=== PATIENT | female | born 1965 | race Hispanic/Latino ===

== ENCOUNTER 2018-08-11 08:46 | Day surgery (SDC) | payer OTHER ==
[2018-08-11 08:51] VITALS: BMI 28.7
[2018-08-11] MEDS ORDERED: Lidocaine 1% Inj (20ml) ONE (09:05)
[2018-08-11] MEDS ORDERED: Bupivacaine 0.5% Inj(30mL) ONE (09:06)
--- NOTE | 2018-08-11 09:21 | CP.PCM.PN ---
Subjective - Date & Time of Evaluation Date of Evaluation: 08/11/18 Time of Evaluation: 09:15 - Subjective Subjective: [facility] note for Dr. Eric, 52 yo female with pmhx of hypothyroidism seen and evaluated in [facility] for right flatfoot. Patient states she notices discomfort after walking for a long time. Patient states she has exhausted all conservative treatment including but not limited to orthotics, NSAIDS, change of shoe gear. Patient admits to being NPO. Patient denies any recent f/nv/sob. Objective - Vital Signs/Intake and Output Vital Signs (last 24 hours): Temp Pulse Resp BP Pulse Ox 98.2 F 82 20 147/85 97 08/11/18 09:13 08/11/18 09:13 08/11/18 09:13 08/11/18 09:13 08/11/18 09:13 - Constitutional Appears: Well, Non-toxic, No Acute Distress - Head Exam Head Exam: ATRAUMATIC - Extremities Exam Additional comments: Right lower extremity exam: vascular: dp/pt 2/4, CFT <3 secs x 5, TG warm to warm, no edema or erythema noted. neuro: protective sensation intact via ipswich 4/4 ortho: flattening of the foot noted upon weightbearing, 0/4 arch height, calcnaeal valgus noted derm: no open lesions, no hyperkeratotic lesions, no clinical signs of infection Assessment and Plan - Assessment and Plan (Free Text) Assessment: 52 yo female seen and evaluated in [facility] for right foot surgery Plan: Pt was seen and examined in [facility] Pt NPO status was confirmed All pre-op testing and clearance in chart Pt has exhausted all conservative treatment at this time and is opting for surgical intervention Pt was explained procedure and post-operative course All pt's questions were answered to satisfaction No guarantees were made Pt understands all risks, benefits and complications of procedure Pt will follow-up with within 1 week of surgery
[2018-08-11] MEDS ORDERED: Propofol 10 mg/ml Inj (20 ML) ONE (09:26)
[2018-08-11] MEDS ORDERED: Lidocaine 2% Jelly (5 ml) TOP ONE (09:27)
[2018-08-11] MEDS ORDERED: Midazolam 2 MG/2 ML VIAL ONE (09:27)
[2018-08-11] MEDS ORDERED: Lidocaine 1% 5ml Abboject ONE (09:27)
[2018-08-11] MEDS ORDERED: Lactated Ringer's 1,000 ML IV ONE (09:29)
--- NOTE | 2018-08-11 09:29 | CP.SDSHP ---
Same Day Surgery H & P - History Proposed Procedure: Right foot subtalar joint arthroeresis - Previous Medical/Surgical History Previous Surgical History: denies - Allergies Allergies: Allergies No Known Allergies Allergy (Verified 08/11/18 08:49) - Physical Exam Vital Signs: Vital Signs 08/11/18 09:13 Temperature 98.2 F Pulse Rate 82 Respiratory 20 Rate Blood Pressure 147/85 O2 Sat by Pulse 97 Oximetry Social History: Alcohol - {Optional Preform as Required} Ortho: Other (right flattening foot upon weight bearing) - Date & Time Date: 08/11/18 Time: 09:29 Short Stay Discharge - Short Stay Discharge Admitting Diagnosis/Reason for Visit: [facility] Disposition: HOME/ ROUTINE Additional Instructions (Diet, Activity): -Patient in good/stable condition for discharge home -Pt to resume medications per medical reconciliation -Resume regular diet -Please keep dressing clean, dry, & intact to surgical site -Use plastic bag over bandage for showering -Wear post op shoe at all times when ambulating -Call clinic if you see signs of infection (redness, swelling, malodor) -Please make an appointment to see Dr. Eric in office/clinic within 1 week for post-op check Progress Note/Discharge Note with Instructions: - Patient evaluated bedside in recovery s/p right foot surgery - After surgical procedure patient in NAD - (+) Void, (+) Appetite - Capillary refill time <3s and NVS intact. - Patient denies complaints at this time. - Post operative instructions and plan of care explained to patient at length. - Patient. acknowledges verbal understanding. - Patient stable for DC per podiatric surgery
[2018-08-11] MEDS ORDERED: Sodium Chloride 0.9% 1,000 ML IV SCH (09:30)
[2018-08-11] MEDS ORDERED: Lidocaine 1% Inj (20ml) IJ ONE (09:30)
[2018-08-11] MEDS ORDERED: Bupivacaine 0.5% Inj(30mL) IJ ONE (09:30)
[2018-08-11] MEDS ORDERED: ceFAZolin 1 GM in Sodium Chloride 0.9% 100 ML IVPB STA (09:30)
[2018-08-11] MEDS ORDERED: Dexamethasone 4 mg/1 ml ONE (09:59)
[2018-08-11] MEDS ORDERED: HYDROmorphone 0.5 mg/0.5 ml ISec IVP PRN (10:59)
[2018-08-11] MEDS ORDERED: Lactated Ringer's 1,000 ML IV SCH (11:00)
--- NOTE | 2018-08-11 11:00 | PCM.SURG1 ---
Surgeon's Initial Post Op Note - Surgeon's Notes Surgeon: NICK LlamasM Rugby Union Footballer: NICK JonesM PGY-3; NICK PendletonM PGY-2 Type of Anesthesia: General LMA, Local Anesthesia Administered By: Dr. Vannesa MD Pre-Operative Diagnosis: painful flatfoot deformity R foot Operative Findings: see operative report. Materials: Hyprocure arthroereisis stent implant (size 8), 4-0 nylon, 5 cc 1:1 mix 0.5 marcaine plain + 1% licoaine plain, 1/2 cc of dexamethasone phospate (2mg total) Post-Operative Diagnosis: same Operation Performed: implantation of arthroereisis stent implant subtalar joint R foot Specimen/Specimens Removed: none Estimated Blood Loss: EBL {In ML}: 1 Blood Products Given: N/A Drains Used: No Drains Post-Op Condition: Good Date of Surgery/Procedure: 08/11/18 Time of Surgery/Procedure: 10:00
[2018-08-11 12:23] VITALS: RESP 18
[2018-08-11 13:07] VITALS: BP 123/76; PULSE 78; TEMP 97.2; O2SAT 100
--- NOTE | 2018-08-11 19:20 | CARD ---
APPROVED REPORT Date of service: 08/11/2018 EKG Measurement Heart [id number] <Conclusion> Normal sinus rhythm Normal ECG
--- NOTE | 2018-08-14 19:43 | OP ---
PROCEDURE DATE: 08/11/2018 PREOPERATIVE DIAGNOSIS: Painful flatfoot deformity of the right foot. POSTOPERATIVE DIAGNOSIS: Painful flatfoot deformity of the right foot. PROCEDURE: Implantation of arthroereisis stent implant of subtalar joint right foot. SURGEON: Melecio Eric MD. PRINCIPAL PROCESS ENGINEER: Aby Walter DPM, Pranav Langston DPM. TYPE OF ANESTHESIA: General LMA with local. ANESTHESIA ADMINISTERED BY: Seb Granado MD. INDICATIONS: This is a 52-year-old female with the above mentioned diagnosis. The patient has exhausted all conservative treatment measures at this time and now requires surgical intervention. The patient signed the consent after careful explanation of all risks, benefits, complications, and alternatives for the surgical procedures. No guarantees were given nor implied. Ancef IV was given to the patient prior to the procedure, n.p.o. status was confirmed prior to taking the patient to the operating room. PREPARATION: The patient was brought to the operating room and placed on the operating table in a supine position. A well-padded pneumatic ankle tourniquet was placed to the patient's right ankle with plenty of Webril cast padding. Once IV sedation was achieved, the patient received a total of 5 mL of 1:1 mixture consisting of 0.5% Marcaine plain with 2% lidocaine plain and 0.5 mL of dexamethasone phosphate containing 2 mg per mL was introduced in a local block fashion to the patient's right foot. Once this was achieved, the right foot was then prepped and draped in the usual sterile manner. Esmarch was utilized to exsanguinate the patient's right foot. The pneumatic ankle tourniquet was then inflated to 250 mmHg and the procedure was begun. DESCRIPTION OF PROCEDURE: Implantation of arthroereisis stent implant of subtalar joint right foot. Our attention was now directed over the lateral aspect of the patient's right foot at the level of the sinus tarsi where a small stab incision was created. Prior to making this incision, a #18 gauge needle was utilized to make sure that the sinus tarsi trajectory was properly identified. The #18 gauge needle was now retracted from the sinus tarsi and care was taken to avoid all vital neurovascular structures in this area. All bleeders were cauterized as necessary. Next, a Cutler scissor was utilized in order to cut the interosseous ligaments within the sinus tarsi as a channel was created from dorsolateral to plantar medial in an approximately 45 degree fashion. Once the sinus tarsi was cleared of all soft tissue, the surgical site was flushed with copious amounts of sterile normal saline solution and a 2.0 K-wire was then passed across the sinus tarsi to allow for cannulated implantation of the implant. Next, the HyProCure implant trial sizers were then placed within the sinus tarsi in order to dilate the sinus tarsi to the correct implant size needed for the foot. An #8 implant was chosen. The sizer was removed and the implant was driven into and across the sinus tarsi using intraoperative fluoroscopy to check for placement which appeared to be seated well within the sinus tarsi. The K-wire was then removed. The surgical site was again flushed with copious amounts of sterile normal saline solution and the skin edges were re-approximated using 4-0 Nylon sutures. The surgical site was dressed with Xeroform, 4x4 gauze, Young and a Ian bandage. POSTOPERATIVE CONDITION: The patient tolerated the procedure and the anesthesia well with no apparent complications or complaints. The patient was escorted to the recovery room at this time. The patient will follow up with Dr. Eric in the office within one week. She will wear a CAM boot and will use crutches at this time. Aby Walter DPM Melecio Eric MD NATE
== END 2018-08-11 13:30 | disposition home or self-care (01) ==
LOC: H.OPSURG 08:46
PROVIDERS: ATTEND Podiatrist Foot & Ankle Surgery
DX: M21.41 Flat foot [pes planus] (acquired), right foot (principal); E03.9 Hypothyroidism, unspecified
CPT/HCPCS: 0335T; 93005; C1713; J0690; J1100; J2250; J2704; J2765; J3010; J7120